=== PATIENT | female | born 1960 | race Caucasian/White ===

== ENCOUNTER 2021-11-21 15:09 | Emergency (ER) | payer OTHER, SELFPAY ==
[2021-11-21 16:26] VITALS: BP 141/69; PULSE 93; RESP 16; TEMP 36.2; O2SAT 98
--- NOTE | 2021-11-21 17:07 | ED.FEMALEGU ---
HPI - Female Genitourinary General Chief complaint: Urogenital-Female Stated complaint: Possible UTI Time Seen by Provider: 11/21/21 17:00 Source: patient and RN notes reviewed Mode of arrival: ambulatory Limitations: no limitations History of Present Illness HPI Narrative: Dasha is a 60-year-old female patient who ambulated into the [facility]. Patient is having urinary urgency and pain with urination. Patient states she is just feeling overall poor and. Patient states she had a UTI at [facility] 2 weeks ago was given plan Keflex for 5 days. Patient states the symptoms never resolved. MD elicited complaint: dysuria Related Data Home Medications Medication Instructions Recorded Confirmed atorvastatin 20 mg PO DAILY 11/21/21 11/21/21 blood sugar diagnostic [OneTouch 11/21/21 11/21/21 Ultra Test] lancets [OneTouch Delica Plus 11/21/21 11/21/21 Lancet] lisinopril 2.5 mg PO DAILY 11/21/21 11/21/21 metformin 1,000 mg PO DAILY 11/21/21 11/21/21 spironolactone 100 mg PO DAILY 11/21/21 11/21/21 thyroid (pork) [Goodman Thyroid] 120 mg PO DAILY 11/21/21 11/21/21 Allergies Allergy/AdvReac Type Severity Reaction Status Date / Time No Known Allergies Allergy Verified 11/21/21 16:41 Review of Systems Review of Systems: CONSTITUTIONAL: Denies body aches, fever, chills, or sweats. EYES: Denies visual changes, redness, or discharge. ENT: Denies rhinorrhea, congestion, sore throat, or otalgia. CARDIOVASCULAR: Denies chest pain, palpitations, or edema. RESPIRATORY: Denies cough or dyspnea. GASTROINTESTINAL: Denies abdominal pain, nausea, vomiting, or diarrhea. GENITOURINARY: +dysuria denies hematuria. SKIN: Denies rash, itching, or wounds. MUSCULOSKELETAL: Denies back pain, joint pain, or myalgia. NEUROLOGIC: Denies headache, numbness, tingling, or weakness. PSYCH: Denies depression or anxiety. All systems reviewed & are unremarkable except as noted in HPI and below PMFSH Comments At time of signature, I have reviewed and agree with nursing past medical, surgical, social and family history unless otherwise noted. Please see nursing chart for further information. There is no relevant family history pertinent to the presenting complaint Exam Narrative: GENERAL: Well-appearing, well-nourished, and in no acute distress. HEAD: Normocephalic, atraumatic. EYES: EOMI. No redness or drainage. Conjunctivae normal. ENT: Mucous membranes pink and moist. Nares clear. No rhinorrhea. NECK: Normal AROM. Supple. No lymphadenopathy. CHEST: No respiratory distress. ABDOMEN: Soft, nontender, nondistended, normal active bowel sounds. Negative CVA tenderness MUSCULOSKELETAL: No bony tenderness. EXTREMITIES: Normal range of motion. No edema. SKIN: Warm, dry, no rash. Capillary refill normal. Normal skin turgor. NEURO: No focal deficits. Alert and oriented x3. Gait steady. PSYCH: Normal affect. No signs of depression or anxiety. Course Vital Signs Vital signs: Vital Signs Temperature 36.2 C L 11/21/21 16:26 Pulse Rate 93 11/21/21 16:26 Respiratory Rate 16 11/21/21 16:26 Blood Pressure 141/69 H 11/21/21 16:26 Pulse Oximetry 98 11/21/21 16:26 Temperature 36.2 C L 11/21/21 16:26 Pulse Rate 93 11/21/21 16:26 Respiratory Rate 16 11/21/21 16:26 Blood Pressure 141/69 H 11/21/21 16:26 Pulse Oximetry 98 11/21/21 16:26 MDM - Female Genitourinary MDM Narrative Medical decision making narrative: Patient's urinalysis shows 2+ blood, positive nitrates and 2+ leukocytes. Patient was treated with Keflex for 5 days 2 weeks ago from [facility]. Patient will be treated with Cipro for 7 days. Patient's urine will be sent to culture. Patient will be notified if her antibiotic needs change. Patient instructed to follow-up with her primary care physician in the next 7 to 10 days for repeat urinalysis. Patient instructed to go to the ER for chills, high fever, or confusion. Di
== END 2021-11-21 17:14 | disposition home or self-care (01) ==
PROVIDERS: Emergency Provider Nurse Practitioner Family; PCP Physician Assistant
DX: N39.0 Urinary tract infection, site not specified (principal); E78.00 Pure hypercholesterolemia, unspecified; I10 Essential (primary) hypertension; R73.03 Prediabetes
CPT/HCPCS: 81003; 87077; 87086; 87088; 87186; 99213; G0463